=== PATIENT | female | born 1930 | race Caucasian/White ===

== ENCOUNTER 2016-08-29 09:47 | Inpatient (IN) | payer MEDICARE, OTHER ==
[~2016-08-29] VITALS: Ht 162.6 cm; Wt 59.0 kg
[2016-08-29] MEDS ORDERED: COENZYME Q10100 MG PO (10:20)
[2016-08-29] MEDS ORDERED: ZINC PO (10:20)
[2016-08-29] MEDS ORDERED: CAL PO (10:20)
[2016-08-29] MEDS ORDERED: MAG PO (10:20)
[2016-08-29] MEDS ORDERED: Miralax 17gm pkt ORAL PRN (10:30)
[2016-08-29] MEDS ORDERED: DuoNeb 0.5-3(2.5)mg/3ml neb HHN PRN (10:30)
[2016-08-29] MEDS ORDERED: Morphine Sulfate 2mg/ml Inj IVP PRN (10:30)
[2016-08-29] MEDS ORDERED: Nitroglycerin Subl 0.4mg tab (Bottle Of 25) SL PRN (10:30)
[2016-08-29] MEDS ORDERED: Ketorolac 30mg Inj IV PRN (10:30)
[2016-08-29] MEDS ORDERED: CYTOMEL25 MCG ORAL (10:42)
[2016-08-29] MEDS ORDERED: FUROSEMIDE40 MG ORAL (10:42)
[2016-08-29] MEDS ORDERED: DIPHENHYDRAMINE25 M1 ORAL (10:42)
[2016-08-29] MEDS ORDERED: PANTOPRAZOLE SO40 MG ORAL (10:42)
[2016-08-29] MEDS ORDERED: TAB-A-VITE1 EACH ORAL (10:42)
[2016-08-29] MEDS ORDERED: LEVOTHYROXINE75 MCG ORAL (10:42)
[2016-08-29] MEDS ORDERED: ZYRTEC10 MG ORAL (10:42)
[2016-08-29] MEDS ORDERED: XARELTO10 MG ORAL (10:42)
[2016-08-29] MEDS ORDERED: LACTULOSE20 GM/301 ORAL (10:42)
[2016-08-29 10:43] VITALS: BP 136/78
[2016-08-29 10:49] LABS: BASOPHILS % (AUTO) 0.4 % (0.0-2.0); EOSINOPHILS % (AUTO) 0.3 % (0.0-3.0); LYMPHOCYTES % (AUTO) 25.9 % (20.0-45.0); MEAN CORPUSCULAR HEMOGLOBIN 29.5 PG (27.0-31.0); MEAN CORPUSCULAR HGB CONC 32.8 G/DL (32.0-36.0); MEAN CORPUSCULAR VOLUME 90 FL (80-99); MEAN PLATELET VOLUME 7.3 FL (6.5-10.1); MONOCYTES % (AUTO) 7.2 % (1.0-10.0); NEUTROPHILS % (AUTO) 66.1 % (45.0-75.0); PLATELET COUNT 245 K/UL (150-450); RED CELL DISTRIBUTION WIDTH 13.2 % (11.6-14.8); WHITE BLOOD COUNT 4.8 K/UL (4.8-10.8)
[2016-08-29] MEDS ORDERED: ONDANSETRON ODT8 MG ORAL (11:00)
[2016-08-29] MEDS ORDERED: LORAZEPAM1 MG ORAL (11:00)
[2016-08-29] MEDS ORDERED: ZANTAC150 MG ORAL (11:00)
[2016-08-29 11:02] LABS: TROPONIN I < 0.30 ng/mL (<=0.30)
[2016-08-29 11:07] LABS: ALANINE AMINOTRANSFERASE 12 U/L (3-33); ALBUMIN/GLOBULIN RATIO 1.5 (1.0-2.7); ANION GAP 10 (5-15); ASPARTATE AMINO TRANSFERASE 18 U/L (5-40); CALCIUM 9.3 mg/dL (8.6-10.2); CARBON DIOXIDE 30 mEQ/L (20-30); CHLORIDE 98 mEQ/L (98-107); CREATININE 0.8 mg/dL (0.5-0.9); HEMOLYSIS 7; SODIUM 138 mEQ/L (135-145); TOTAL PROTEIN 6.4 g/dL (6.6-8.7)
[2016-08-29 11:18] LABS: CKMB 2.3 ng/mL (< 3.8)
--- NOTE | 2016-08-29 11:49 | Emergency Room Report ---
History of Present Illness General Chief Complaint: Chest Pain Source: EMS, PMD Present Illness HPI 85YOF from assisted living with substernal chest pain radiating to left jaw. Improved with "tablets under the tongue given by EMS." Not sure if she took Xarelto last night. Denies SOB, fever/chills, abd pain, urinary complaints Patient repeating herself, asking multiple times for transfer to [facility] Also info faxed from [facility] below: Summarized large amount of paperwork: patient Admit-DC from [facility] 07/21-08/25 Acute on chronic CHF Known Atrial fib on Xarelto Major neurocog disorder "patient incapable of making informed decisions" Surgical historry: colon cancer, SBO, embolic CVA Allergies: Coded Allergies: AMOXICILLIN (Verified Allergy, Unknown, 08/29/16) IODINE AND IODIDE CONTAINING PRODUC (Verified Allergy, Unknown, 08/29/16) SULFA (SULFONAMIDE ANTIBIOTICS) (Verified Allergy, Unknown, 08/29/16) Uncoded Allergies: CONTRAST DYE (Allergy, Unknown, 08/29/16) Patient History Past Medical History: other - See my HPI Past Surgical History: other - see HPI Pertinent Family History: none Now: No Immunizations: UTD Reviewed Nursing Documentation: PMH: Agreed, PSxH: Agreed Nursing Documentation-PMH Hx Cardiac Problems: Yes - CAD; A-fib Hx Hypertension: Yes History Of Psychiatric Problem: Yes - Dementia Review of Systems All Other Systems: negative except mentioned in HPI Physical Exam Vital Signs Date Time Temp Pulse Resp B/P Pulse Ox O2 Delivery O2 Flow Rate FiO2 08/29/16 09:50 77 16 136/78 100 Room Air Sp02 EP Interpretation: reviewed, normal General Appearance: normal inspection, well appearing, no apparent distress, alert, GCS 15, non-toxic Head: normocephalic, atraumatic Eyes: bilateral eye EOMI, bilateral eye PERRL ENT: normal ENT inspection, hearing grossly normal, normal voice Neck: normal inspection, full range of motion, supple, no bony tend Respiratory: normal inspection, lungs clear, normal breath sounds, no respiratory distress, no retraction, no accessory muscle use, no wheezing, speaking full sentences, other - Port on upper left chest Cardiovascular #1: no edema, irregularly irregular Gastrointestinal: normal inspection, normal bowel sounds, non tender, soft, no guarding, no hernia Genitourinary: no CVA tenderness Musculoskeletal: normal inspection, back normal, normal range of motion, Connor' s Sign negative Neurologic: normal inspection, alert, oriented x3, responsive, 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 I attest that this information is true, accurate and complete to the best of my knowledge. I understand that any falsification, omission, or concealment of material fact may subject me to administrative, civil, or criminal liability. This patient warrants hospital admission for extreme of age and has a condition that cannot be treated as outpatient. Diagnostic Impression: Primary Impression: Chest pain Qualified Codes: R07.9 - Chest pain, unspecified ER Course 85YOF with chest pain - VSS. Afebrile. - ECG shows Atrial fib. Not in RVR - Unreliable onset duration from patient - Initial troponin 0. - Not in overt CHF - CXR: No PNA, CHF - Approved for admission/observation tele overnight by [facility] Endorsed to Dr Gonzales for tele at 1210pm EKG Diagnostic Results Rate: other - atrial fib ST Segments: no acute changes ASA given to the pt in ED: No Rhythm Strip Diag. Results EP Interpretation: yes Rate: 68 Rhythm: no PVC's, no ectopy Chest X-Ray Diagnostic Results Chest X-Ray Diagnostic Results : Chest X-Ray Ordered: Yes # of Views/Limited/Complete: 1 View Indication: Chest Pain EP Interpretation: Yes Interpretation: no consolidation, no effusion, no pneumothorax, no acute cardiopulmonary disease Impression: No acute disease Interpreting ER Provider: Electronically signed by DR Aragon Last Vital Signs Date Time Temp Pulse Resp B/P Pulse Ox O2 Delivery O2 Flow Rate FiO2 08/29/16 10:43 60 16 Room Air 08/29/16 10:43 136/78 100 Disposition: ADMITTED INPATIENT Condition: Serious Referrals: NANCY VIRAMONTES MD (PCP) CESAR ARAGON M.D. Aug 29, 2016 11:49
[2016-08-29] MEDS ORDERED: LORazepam Inj 2mg/ml 1ml ONE (12:37)
[2016-08-29 12:40] VITALS: BP 129/63
[2016-08-29] MEDS ORDERED: LORazepam Inj 2mg/ml 1ml IV ONE (12:45)
[2016-08-29] MEDS ORDERED: Enalaprilat 2.5mg/2ml Inj IV PRN (13:00)
[2016-08-29] MEDS ORDERED: Diltiazem 25mg/5ml IV PRN (13:00)
[2016-08-29 20:15] VITALS: BP 123/56
[2016-08-29] MEDS ORDERED: Heparin 5000 units/ml inj SUBQ SCH (21:00)
--- NOTE | 2016-08-29 21:15 | Consultation ---
History of Present Illness General Date patient seen: Aug 29, 2016 Time patient seen: 12:00 Chief Complaint: Chest Pain Reason for Consultation: cp Present Illness HPI pt discharged from [facility] 3 days ago. complains of intermittent cp but is a poor historian. seen in ER EKG was nonspecific. apparently no bed available at [facility] for transfer. no NV F or chills. Allergies: Coded Allergies: AMOXICILLIN (Verified Allergy, Unknown, 08/29/16) IODINE AND IODIDE CONTAINING PRODUC (Verified Allergy, Unknown, 08/29/16) SULFA (SULFONAMIDE ANTIBIOTICS) (Verified Allergy, Unknown, 08/29/16) Uncoded Allergies: CONTRAST DYE (Allergy, Unknown, 08/29/16) Medication History Scheduled Furosemide* (Lasix*), 40 MG ORAL DAILY, (Reported) Levothyroxine Sodium* (Levothyroxine Sodium*), 75 MCG ORAL DAILY, (Reported) Liothyronine Sodium* (Cytomel*), 25 MCG ORAL DAILY, (Reported) Multivitamin (Tab-A-Rachael), 1 TAB ORAL DAILY, (Reported) Pantoprazole* (Pantoprazole*), 40 MG ORAL EVERY 12 HOURS, (Reported) Ranitidine Hcl* (Zantac*), 150 MG ORAL DAILY, (Reported) Rivaroxaban (Xarelto*), 10 MG ORAL DAILY, (Reported) Ubidecarenone (Coenzyme Q10), 100 MG PO DAILY, (Reported) [todd/mag/zinc], 1 TAB PO DAILY, (Reported) Scheduled PRN Cetirizine Hcl* (Zyrtec*), 10 MG ORAL DAILY PRN for Itching, (Reported) Diphenhydramine Hcl* (Diphenhydramine Hcl*), 25 MG ORAL HS PRN for Itching, ( Reported) Lactulose (Lactulose*), 30 ML ORAL DAILY PRN for Constipation, (Reported) Lorazepam* (Lorazepam*), 1 MG ORAL THREE TIMES A DAY PRN for Agitation, ( Reported) Ondansetron Odt* (Zofran Odt*), 8 MG ORAL TID PRN for Nausea & Vomiting, ( Reported) Patient History Healthcare decision maker Resuscitation status Advanced Directive on File Past Medical/Surgical History Past Medical/Surgical History: (1) Chest pain Physical Exam General Appearance: WD/WN, confused Neck: normal alignment, supple, normal inspection Respiratory/Chest: normal breath sounds, no respiratory distress Cardiovascular/Chest: normal rate, regular rhythm Abdomen: non tender, soft Extremities: non-tender, normal inspection Skin Exam: normal pigmentation, warm/dry Neurologic: no motor/sensory deficits, alert, responsive Last 24 Hour Vital Signs Date Time Temp Pulse Resp B/P Pulse Ox O2 Delivery O2 Flow Rate FiO2 08/29/16 20:15 97.0 55 20 123/56 97 Room Air 08/29/16 18:00 63 08/29/16 13:03 98.5 84 16 129/63 100 Room Air 08/29/16 12:40 98.5 84 16 129/63 100 Room Air 08/29/16 10:43 60 16 Room Air 08/29/16 10:43 60 16 136/78 100 Room Air 08/29/16 09:50 77 16 136/78 100 Room Air Laboratory Tests Test 08/29/16 10:20 08/29/16 10:30 Troponin I < 0.30 ng/mL (<=0.30) White Blood Count 4.8 K/UL (4.8-10.8) Red Blood Count 4.50 M/UL (4.20-5.40) Hemoglobin 13.3 G/DL (12.0-16.0) Hematocrit 40.5 % (37.0-47.0) Mean Corpuscular Volume 90 FL (80-99) Mean Corpuscular Hemoglobin 29.5 PG (27.0-31.0) Mean Corpuscular Hemoglobin Concent 32.8 G/DL (32.0-36.0) Red Cell Distribution Width 13.2 % (11.6-14.8) Platelet Count 245 K/UL (150-450) Mean Platelet Volume 7.3 FL (6.5-10.1) Neutrophils (%) (Auto) 66.1 % (45.0-75.0) Lymphocytes (%) (Auto) 25.9 % (20.0-45.0) Monocytes (%) (Auto) 7.2 % (1.0-10.0) Eosinophils (%) (Auto) 0.3 % (0.0-3.0) Basophils (%) (Auto) 0.4 % (0.0-2.0) Sodium Level 138 mEQ/L (135-145) Potassium Level 4.0 mEQ/L (3.4-4.9) Chloride Level 98 mEQ/L (98-107) Carbon Dioxide Level 30 mEQ/L (20-30) Anion Gap 10 (5-15) Blood Urea Nitrogen 28 mg/dL (7-23) H Creatinine 0.8 mg/dL (0.5-0.9) Estimat Glomerular Filtration Rate mL/min (>60) Glucose Level 107 mg/dL (74-106) H Calcium Level 9.3 mg/dL (8.6-10.2) Total Bilirubin 0.9 mg/dL (0.0-1.2) Aspartate Amino Transf (AST/SGOT) 18 U/L (5-40) Alanine Aminotransferase (ALT/SGPT) 12 U/L (3-33) Alkaline Phosphatase 87 U/L (35-104) Total Creatine Kinase 68 U/L (26-140) Creatine Kinase MB 2.3 ng/mL (< 3.8) Creatine Kinase MB Relative Index 3.3 Pro-B-Type Natriuretic Peptide 549 pg/mL (0-450) H Total Protein 6.4 g/dL (6.6-8.7) L Albumin 3.9 g/dL (3.5-5.2) Globulin 2.5 g/dL Albumin/Globulin Ratio 1.5 (1.0-2.7) Height (Feet): 5 Height (Inches): 4.00 Weight (Pounds): 130 Medications Current Medications Medications (Trade) Dose Ordered Sig/Polly Route PRN Reason Start Time Stop Time Status Last Admin Dose Admin Acetaminophen (Tylenol) 650 mg Q4H PRN ORAL T>100.5 08/29/16 10:30 09/28/16 10:29 08/29/16 12:05 Albuterol/ Ipratropium (DuoNeb 0.5-3(2.5)mg/3ml) 3 ml Q4H PRN HHN Shortness of Breath 08/29/16 10:30 09/03/16 10:29 Aspirin (ASA) 162 mg DAILY ORAL 08/30/16 09:00 09/29/16 08:59 Diltiazem HCl (Cardizem) 10 mg EVERY HOUR PRN IV heart rate more than 120 08/29/16 13:00 09/28/16 12:59 Enalaprilat (Vasotec) 2.5 mg Q6H PRN IV SBP>160 mmHg 08/29/16 13:00 09/28/16 12:59 Heparin Sodium (Porcine) (Heparin 5000 units/ml) 5,000 units EVERY 12 HOURS SUBQ 08/29/16 21:00 09/28/16 20:59 Morphine Sulfate (Morphine Sulfate) 2 mg Q4H PRN IVP Severe Pain (Pain Scale 7-10) 08/29/16 10:30 09/05/16 10:29 Nitroglycerin (Ntg) 0.4 mg Q5MIN X 3 DOSES PRN SL Prn Chest Pain 08/29/16 10:30 09/28/16 10:29 Ondansetron HCl (Zofran) 4 mg Q6H PRN IVP Nausea & Vomiting 08/29/16 10:30 09/28/16 10:29 08/29/16 11:23 Pantoprazole (Protonix) 40 mg DAILY ORAL 08/30/16 09:00 09/29/16 08:59 Polyethylene Glycol (Miralax) 17 gm DAILYPRN PRN ORAL Constipation 08/29/16 10:30 09/28/16 10:29 Temazepam (Restoril) 15 mg HSPRN PRN ORAL Insomnia 08/29/16 21:00 09/05/16 20:59 Assessment/Plan Status: stable Status Narrative will admit and rule out for mi home meds to be resumed will contact [facility] for transfer when bed is avilable ASA FU am labs replace lytes PT DVT prophylaxis no indication of infection at this time UA pending SHEMAR CLARK DO Aug 29, 2016 21:15
[2016-08-29 23:57] VITALS: BP 138/82
[2016-08-30] MEDS ORDERED: Aspirin Baby 81mg ORAL SCH (09:00)
--- NOTE | 2016-08-30 09:15 | Diagnostic Imaging Report ---
Indication: SOB Technique: XRAY CHEST 1 V Comparison:None Findings: The heart is normal in size. There is a Port-A-Cath on the right. Delicate densities overlie the lower thoracic spine. There is mild interstitial disease. No alveolar infiltrates. No pleural fluid. Bones are osteopenic. Impression: Metallic densities over the lower thoracic spine. Port-A-Cath. Interstitial disease. This may be acute or chronic.
--- NOTE | 2016-09-02 07:44 | Cardiology Report ---
APPROVED REPORT EXAM: Two-dimensional and M-mode echocardiogram with Doppler and color Doppler. INDICATION Left ventricular function M-Mode DIMENSIONS IVSd0.6 (0.7-1.1cm)Left Atrium (MM)4.2 (1.6-4.0cm) LVDd4.1 (3.5-5.6cm)Aortic Root2.8 (2.0-3.7cm) PWd0.7 (0.7-1.1cm)Aortic Cusp Exc.1.9 (1.5-2.0cm) LVDs2.4 (2.5-4.0cm) PWs0.9 cm Normal left ventricular chamber size, systolic function and wall motion. Left ventricular ejection fraction estimated to be 60-65%. No evidence of left ventricular hypertrophy. No evidence of pericardial fat or effusion. Right cardiac chamber sizes are within normal limits. Mild left atrial enlargement by 2D. Focal aortic valve sclerosis with adequate cusp excursion Thickened mitral valve leaflets with normal excursion. Mitral annulus and aortic root calcification. Pulmonic valve not well visualized. Normal tricuspid valve structure. IVC is normal in size with physiologic collapse. A color flow and spectral Doppler study was performed and revealed: Mild aortic regurgitation (2 jets). Trace mitral regurgitation. Left ventricular diastolic dysfunction not obtainable due to A-FIB. Mild tricuspid regurgitation. Tricuspid systolic velocities suggests peak right ventricular systolic pressure of 27 mmHg
--- NOTE | 2016-09-15 09:04 | Discharge Summary ---
Discharge Summary Hospital Course Date of Admission Aug 29, 2016 at 10:16 Date of Discharge Aug 29, 2016 at 23:55 Admitting Diagnosis Chest Pain HPI Justine Bone is a 85 year old female who was admitted on Aug 29, 2016 at 10:16 for Chest Pain Hospital Course dc summary #[id number] Discharge Medications Continued Medications: Cetirizine Hcl* (Zyrtec*) 10 Mg Tablet 10 MG ORAL DAILY PRN for Itching, #30 TAB 0 Refills Diphenhydramine Hcl* (Diphenhydramine Hcl*) 25 Mg Capsule 25 MG ORAL HS PRN for Itching, #30 CAP 0 Refills Furosemide* (Lasix*) 40 Mg Tablet 40 MG ORAL DAILY, TAB Lactulose (Lactulose*) 20 Gm/30 Ml Solution 30 ML ORAL DAILY PRN for Constipation, ML 0 Refills Levothyroxine Sodium* (Levothyroxine Sodium*) 75 Mcg Tablet 75 MCG ORAL DAILY, TAB Take in the morning on an empty stomach, at least 30 minutes before food. Liothyronine Sodium* (Cytomel*) 25 Mcg Tablet 25 MCG ORAL DAILY, #10 TAB 0 Refills Lorazepam* (Lorazepam*) 1 Mg Tablet 1 MG ORAL THREE TIMES A DAY PRN for Agitation, TAB Multivitamin (Tab-A-Rachael) 1 Each Tablet 1 TAB ORAL DAILY, #30 TAB 0 Refills Ondansetron Odt* (Zofran Odt*) 8 Mg Tab.rapdis 8 MG ORAL TID PRN for Nausea & Vomiting, #10 TAB 0 Refills Pantoprazole* (Pantoprazole*) 40 Mg Tablet.dr 40 MG ORAL EVERY 12 HOURS, TAB Ranitidine Hcl* (Zantac*) 150 Mg Tablet 150 MG ORAL DAILY, #30 TAB 0 Refills Rivaroxaban (Xarelto*) 10 Mg Tablet 10 MG ORAL DAILY, #30 TAB 0 Refills Ubidecarenone (Coenzyme Q10) 100 Mg Tablet 100 MG PO DAILY, TAB [todd/mag/zinc] () 1 TAB PO DAILY Discharge Condition Upon Discharge: stable Discharge Disposition Patient was discharged to Acute Care Facility(02) - [facility] Discharge Diagnoses: Discharge Instructions Discharge Instructions Special Instructions I have been assigned to complete a D/C Summary on this account. I was not involved in the patient management Stephanie Aguayo NP (Vanchtein) Sep 15, 2016 09:03
--- NOTE | 2016-09-16 00:46 | Discharge Summary 2 SIG ---
DATE OF ADMISSION: 08/29/2016 DATE OF DISCHARGE: 08/29/2016 The patient was admitted under Dr. Gonzales. REASON FOR ADMISSION: This is an 85-year-old female with a history of coronary artery disease, hypertension, chronic atrial fibrillation (on Xarelto), and dementia, presented with a substernal chest pain radiating to left jaw. The patient usually was hospitalized in [facility]. The patient is capitated to this hospital due to her insurance. Last hospitalization was from 07/21/2016 to 08/25/2016 with diagnosis of acute on chronic congestive heart failure, atrial fibrillation, and major neurocognitive disorder. According to papers from [facility], the patient was incapable of making informed decision. The patient has a surgical history of colon cancer, small-bowel obstruction, and embolic CVA. In the emergency department, her first troponin was negative. ProBNP was 549. EKG revealed atrial fibrillation with controlled ventricular response. Chest x-ray revealed no pneumonia and no congestive heart failure. Echocardiogram revealed preserved ejection fraction of 60% to 65% and right ventricular systolic pressure of 27. Laboratory work was essentially unremarkable. The patient was afebrile with stable pulse oximetry on room air and normotensive. At that time, the patient was placed on the waiting list for transfer to [facility] and apparently approved for admission observation awaiting for the bed. The patient was transferred in the meantime to telemetry floor until the bed available. ADMITTING DIAGNOSES: Includes chest pain, rule out acute myocardial infarction. HOSPITAL COURSE: The patient was admitted. The patient was seen by doctor. The patient was started on aspirin. Continue home medication. DVT prophylaxis provided. Ordered physical therapy evaluation and treatment. Bed became available later that day and the patient was transferred to [facility] via ambulance. DISCHARGE DIAGNOSES: Includes chest pain, rule out acute myocardial infarction. DISCHARGE MEDICATIONS: See medication reconciliation list. DISCHARGE INSTRUCTIONS: The patient is discharged to [facility] for further management. Dung Gonzales M.D. I have been assigned to dictate discharge summary on this account and I was not involved in the patient's management. Stephanie Aguayo N.P. (vanchtein) DR: FAVIOLA JOB#: [id number] CC:
== END 2016-08-29 23:55 | disposition short-term general hospital (02) | DRG 282 ==
LOC: EDBD 09:47 → EMR 10:05 → 2E 10:16 → OBSVTOIN 10:16 → EDBEDREQ 12:17
DX: I21.3 ST elevation (STEMI) myocardial infarction of unspecified site (principal); I50.9 Heart failure, unspecified; F01.50 Vascular dementia, unspecified severity, without behavioral disturbance, psychotic disturbance, mood disturbance, and anxiety; I48.91 Unspecified atrial fibrillation; R07.9 Chest pain, unspecified; Z79.01 Long term (current) use of anticoagulants; Z85.038 Personal history of other malignant neoplasm of large intestine; Z86.73 Personal history of transient ischemic attack (TIA), and cerebral infarction without residual deficits; Z88.2 Allergy status to sulfonamides; Z88.8 Allergy status to other drugs, medicaments and biological substances; Z88.1 Allergy status to other antibiotic agents; Z91.041 Radiographic dye allergy status; I25.10 Atherosclerotic heart disease of native coronary artery without angina pectoris
CPT/HCPCS: 36415; 71010; 80053; 82550; 82553; 83880; 84484; 85025; 87040; 93005; 93306; G0378; J2405